=== PATIENT | male | born 1970 | race Two or more races ===

== ENCOUNTER 2019-11-09 18:21 | Inpatient (IN) | payer MEDICAID ==
[~2019-11-09] VITALS: Ht 165.1 cm; Wt 96.0 kg
[2019-11-09] MEDS ORDERED: ATORVASTATIN CA20 MG ORAL (18:40)
[2019-11-09] MEDS ORDERED: ASPIR 8181 MG ORAL (18:40)
[2019-11-09] MEDS ORDERED: TORSEMIDE10 MG PO (18:40)
[2019-11-09] MEDS ORDERED: LOSARTAN POTASS50 MG ORAL (18:40)
[2019-11-09] MEDS ORDERED: POTASSIUM CHLO10 MEQ ORAL (18:40)
[2019-11-09] MEDS ORDERED: HYDRALAZINE HCL50 MG ORAL (18:40)
--- NOTE | 2019-11-09 18:40 | NUR ---
ED Nurse Note: Pt ambulated to ED as he being referred by his primary physician. Per recent records, pt has elevated potassium level of 6.2. Pt is A&Ox4, calm and cooperative, pt denies chest pain. Per appears to be having generalized edema; complains of RT lower abdominal pain radiating on his lower back with 8/10 scale. Pt was placed on bed and gown; hooked to cardiac exercise specialist.
[2019-11-09 18:52] VITALS: BP 169/86
--- NOTE | 2019-11-09 18:59 | NUR ---
ED Nurse Note: ERMD at bedside.
--- NOTE | 2019-11-09 19:02 | NUR ---
ED Nurse Note: Hand-off given to Mike Gonsales RN for continuity of care.
--- NOTE | 2019-11-09 19:03 | Emergency Room Report ---
History of Present Illness General Chief Complaint: Abnormal Labs Source: Patient Present Illness HPI 49-year-old male with a history of chronic kidney disease and CHF on Lasix here with abnormal labs. Patient had routine lab work done yesterday and received a call from his primary care physician today that he had a potassium of 6.2 and to come immediately to the emergency department. Patient says that he has been experiencing diffuse extremity swelling over the past month but says that today it is slightly better than it had been. Denies any headaches, vision changes, fevers, chills, chest pain, palpitation, shortness of breath, back pain, abdominal pain, nausea, vomiting, diarrhea, dysuria. 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 COVID-19 Screening: Negative COVID-19 COVID-19 Testing Source: SALES ACCOUNT COORDINATOR Nursing Documentation-[facility] Past Medical History: No History, Except For Hx Cardiac Problems: Yes - Hyperlidemia Hx Hypertension: Yes Hx Pacemaker: No Hx Asthma: No Hx COPD: No Hx Diabetes: Yes Hx Cancer: No Hx Gastrointestinal Problems: No Hx Dialysis: No History Of Psychiatric Problem: No Hx Neurological Problems: No Hx Cerebrovascular Accident: No Hx Seizures: No Review of Systems All Other Systems: negative except mentioned in HPI Physical Exam Vital Signs Date Time Temp Pulse Resp B/P (MAP) Pulse Ox O2 Delivery O2 Flow Rate FiO2 11/09/19 18:30 98.4 89 14 169/86 (113) 97 Room Air Sp02 EP Interpretation: reviewed, normal General Appearance: no apparent distress, alert, GCS 15, non-toxic Head: normocephalic, atraumatic Eyes: bilateral eye normal inspection, bilateral eye PERRL ENT: hearing grossly normal, normal pharynx, no angioedema, normal voice Neck: full range of motion, supple/symm/no masses Respiratory: chest non-tender, lungs clear, normal breath sounds, speaking full sentences Cardiovascular #1: regular rate, rhythm, no edema Cardiovascular #2: 2+ carotid (R), 2+ carotid (L), 2+ radial (R), 2+ radial (L) , 2+ dorsalis pedis (R), 2+ dorsalis pedis (L) Gastrointestinal: normal bowel sounds, non tender, soft, non-distended, no guarding, no rebound Rectal: deferred Genitourinary: normal inspection, no CVA tenderness Musculoskeletal: back normal, normal range of motion, calf tenderness, gait/ station normal, non-tender, other - 2+ pitting edema of the bilateral lower extremities distal to the knees equally in both extremities. Very mild edema of the bilateral upper extremities Neurologic: alert, motor strength/tone normal, oriented x3, sensory intact, responsive, speech normal Psychiatric: judgement/insight normal, memory normal, mood/affect normal, no suicidal/homicidal ideation Reflexes: 3+ bicep (R), 3+ bicep (L), 3+ tricep (R), 3+ tricep (L), 3+ knee (R) , 3+ knee (L) Lymphatic: no adenopathy Medical Decision Making Diagnostic Impression: Primary Impression: Hyperkalemia Additional Impressions: Anemia FAVIOLA (acute kidney injury) ER Course Laboratory Tests Test 11/09/19 18:55 11/09/19 19:00 Urine Color Yellow Urine Appearance Clear Urine pH 7 (4.5-8.0) Urine Specific [place] 1.010 (1.005-1.035) Urine Protein 4+ (NEGATIVE) H Urine Glucose (UA) 2+ (NEGATIVE) H Urine Ketones Negative (NEGATIVE) Urine Blood 2+ (NEGATIVE) H Urine Nitrite Negative (NEGATIVE) Urine Bilirubin Negative (NEGATIVE) Urine Urobilinogen Normal MG/DL (0.0-1.0) Urine Leukocyte Esterase Negative (NEGATIVE) Urine RBC 10-15 /HPF (0 - 0) H Urine WBC 0-2 /HPF (0 - 0) Urine Squamous Epithelial Cells Occasional /LPF Urine Bacteria Occasional /HPF (NONE) White Blood Count 6.0 K/UL (4.8-10.8) Red Blood Count 3.40 M/UL (4.70-6.10) L Hemoglobin 9.2 G/DL (14.2-18.0) L Hematocrit 30.6 % (42.0-52.0) L Mean Corpuscular Volume 90 FL (80-99) Mean Corpuscular Hemoglobin 27.0 PG (27.0-31.0) Mean Corpuscular Hemoglobin Concent 30.0 G/DL (32.0-36.0) L Red Cell Distribution Width 15.0 % (11.6-14.8) H Platelet Count 245 K/UL (150-450) Mean Platelet Volume 8.6 FL (6.5-10.1) Neutrophils (%) (Auto) 62.1 % (45.0-75.0) Lymphocytes (%) (Auto) 23.4 % (20.0-45.0) Monocytes (%) (Auto) 7.9 % (1.0-10.0) Eosinophils (%) (Auto) 5.3 % (0.0-3.0) H Basophils (%) (Auto) 1.4 % (0.0-2.0) Prothrombin Time 10.2 SEC (9.30-11.50) Prothrombin Time INR 0.9 (0.9-1.1) Sodium Level 142 MMOL/L (136-145) Potassium Level 6.1 MMOL/L (3.5-5.1) *H Chloride Level 111 MMOL/L (98-107) H Carbon Dioxide Level 25 MMOL/L (21-32) Anion Gap 7 mmol/L (5-15) Blood Urea Nitrogen 31 mg/dL (7-18) H Creatinine 1.8 MG/DL (0.55-1.30) H Estimated Glomerular Filtration Rate 40.0 mL/min (>60) Glucose Level 137 MG/DL (74-106) H Calcium Level 8.3 MG/DL (8.5-10.1) L Total Bilirubin 0.3 MG/DL (0.2-1.0) Aspartate Amino Transferase (AST) 29 U/L (15-37) Alanine Aminotransferase (ALT) 36 U/L (12-78) Alkaline Phosphatase 452 U/L (46-116) H Ammonia 46 umol/L (11-32) H Troponin I 0.016 ng/mL (0.000-0.056) Pro-B-Type Natriuretic Peptide 4777 pg/mL (0-125) H Total Protein 6.2 G/DL (6.4-8.2) L Albumin 2.3 G/DL (3.4-5.0) L Globulin 3.9 g/dL Albumin/Globulin Ratio 0.6 (1.0-2.7) L Thyroid Stimulating Hormone (TSH) 4.159 uiU/mL (0.358-3.740) EKG: NSR, no ischemia, intervals WNL. No ectopy Rhythm strip: patient monitored for arrhythmias - no malignant dysrhythmias, runs of PVCs, nor pauses noted Chest x-ray: No infiltrate/effusion. Mediastinum within normal limits Total critical care time: Approximately 30 minutes Due to a high probability of clinically significant, life threatening deterioration, the patient required the highest level of preparedness to intervene emergently and I personally spent this critical care time directly and personally managing the patient. This critical care time included obtaining a history, examining the patient, pulse oximetry, ordering and reviewing studies , ordering treatments, evaluating response to treatment and updating management plan as needed, frequent reassessment and discussion with other providers as well as arranging for ultimate disposition. This critical to care time was performed to assess and manage the high probability of life-threatening deterioration that could result in multiorgan failure. This critical care time is separate from the separately billable procedures and treating other patients. 49-year-old male here with hyperkalemia. Patient's potassium 6.1 in the emergency department but had no EKG changes. He received Lasix, IV normal saline, Kayexalate, insulin, dextrose. Repeat potassium was 5.1. Patient labs also reveal an acute kidney injury. His creatinine was 1.8 and his normal baseline creatinine is 1.1. I spoke with the patient's primary care provider who agrees with admission. Patient admitted to telemetry in stable condition. Last Vital Signs Date Time Temp Pulse Resp B/P (MAP) Pulse Ox O2 Delivery O2 Flow Rate FiO2 11/09/19 18:52 98.4 14 169/86 97 Room Air 11/09/19 18:30 89 Blu Castro M.D. Nov 09, 2019 19:03
[2019-11-09 19:30] VITALS: BP 173/88
--- NOTE | 2019-11-09 19:30 | NUR ---
ED Nurse Note: received patient from nicolas vuong rn. patient resting in bed with no acute distress. aao4; bengali speaking; follows command; presents with purposeful movement. reattached to monitor; vitals stable to baseline. NSR. room air. skin intact. iv access noted; flushed and patent. discussed plan of care with patient; aware of condition and pending admission. belongings list completed with patient. all safety measures met.
[2019-11-09 19:31] LABS: BASOPHILS % (AUTO) 1.4 % (0.0-2.0); EOSINOPHILS % (AUTO) 5.3 % (0.0-3.0); HEMATOCRIT 30.6 % (42.0-52.0); HEMOGLOBIN 9.2 G/DL (14.2-18.0); LYMPHOCYTES % (AUTO) 23.4 % (20.0-45.0); MEAN CORPUSCULAR VOLUME 90 FL (80-99); MONOCYTES % (AUTO) 7.9 % (1.0-10.0); NEUTROPHILS % (AUTO) 62.1 % (45.0-75.0); PLATELET COUNT 245 K/UL (150-450)
[2019-11-09 19:36] LABS: APPEARANCE,URINE CLEAR; BILIRUBIN, URINE NEGATIVE (NEGATIVE); COLOR,URINE YELLOW; GLUCOSE, URINE (UA) 2+ (NEGATIVE); KETONES,URINE NEGATIVE (NEGATIVE); LEUKOCYTE ESTERASE ,URINE NEGATIVE (NEGATIVE); NITRITE,URINE NEGATIVE (NEGATIVE); PH,URINE 7 (4.5-8.0); PROTEIN,URINE 4+ (NEGATIVE); UROBILINOGEN,URINE NORMAL MG/DL (0.0-1.0)
[2019-11-09 19:40] LABS: AMMONIA 46 umol/L (11-32); INR 0.9 (0.9-1.1)
[2019-11-09 19:50] LABS: ALANINE AMINOTRANSFERASE 36 U/L (12-78); ALBUMIN 2.3 G/DL (3.4-5.0); ALBUMIN/GLOBULIN RATIO 0.6 (1.0-2.7); ALKALINE PHOSPHATASE 452 U/L (46-116); ANION GAP 7 mmol/L (5-15); ASPARTATE AMINO TRANSFERASE 29 U/L (15-37); BILIRUBIN,TOTAL 0.3 MG/DL (0.2-1.0); BLOOD UREA NITROGEN 31 mg/dL (7-18); CALCIUM 8.3 MG/DL (8.5-10.1); CARBON DIOXIDE 25 MMOL/L (21-32); CHLORIDE 111 MMOL/L (98-107); CREATININE 1.8 MG/DL (0.55-1.30); SODIUM 142 MMOL/L (136-145)
[2019-11-09 19:52] LABS: POTASSIUM 6.1 MMOL/L (3.5-5.1)
[2019-11-09] MEDS ORDERED: Insulin Human Regular 100units/ml 3ml IV ONE (20:00)
[2019-11-09] MEDS: NS 500 ML IV SCH ×3 (20:17→21:17)
[2019-11-09] MEDS ORDERED: Sodium Polystyrene Sulfonate 15gm Powder ORAL ONE (20:45)
--- NOTE | 2019-11-09 21:00 | NUR ---
ED Nurse Note: Repeat potassium drawn; sent down to lab.
[2019-11-09 21:45] VITALS: BP 153/83
--- NOTE | 2019-11-09 22:15 | NUR ---
TRANSFER TO FLOOR: Patient transferred to tele 212-1 as ordered, per kendrick villaseñor. Report given to blessing hoff. patient stable for transport. transferred to unit via gurney with ashley and rn. belongings and admission packet sent with patient.
[2019-11-09 23:00] VITALS: BP 154/77
--- NOTE | 2019-11-09 23:00 | NUR ---
NURSE NOTES: Pt arrived via gurney from ED. Got report from Shital RONDON. Initial assessment done. Pt is here for hyperkalemia. Pt is A+Ox4 Turkish speaking can understand basic Argentine. Pt is ambulatory but weak. Pt is continent uses urinal. Denies any pain. Denies any n/v or SOB. telemetry monitor placed on pt running Sinus Rhythm. Pt on room air sating 94% no SOB. VSS T:97.4 HR:80 R:16 BP:154/77 O2:94% on room air. No skin issues noted. Pt has R AC 20g Slocked. Pt resting in bed comfortably. Bed in low and locked position, call light within reach, bedside table within reach. Continue to monitor. Got orders from Dr. Moran. Orders placed.
[2019-11-09 23:04] LABS: ANION GAP 9 mmol/L (5-15); BLOOD UREA NITROGEN 30 mg/dL (7-18); CALCIUM 8.3 MG/DL (8.5-10.1); CARBON DIOXIDE 24 MMOL/L (21-32); CHLORIDE 113 MMOL/L (98-107); CREATININE 1.7 MG/DL (0.55-1.30); POTASSIUM 5.2 MMOL/L (3.5-5.1); SODIUM 145 MMOL/L (136-145)
[2019-11-10 04:00] VITALS: BP 150/75
--- NOTE | 2019-11-10 04:20 | NUR ---
NURSE NOTES: Pt woke up agitated and trying to get out of bed and pulling iv line. Pt complaining of difficulty urinating did bladder scan >400mL. Called Dr. Moran for orders. Dr. Moran ordered bilateral soft wrist restraints and in and out catheter. Applied bilateral soft wrist restraints. Completed in and out catheter output: 1850mL. Pt in stable condition. Continue to monitor. Addendum: 11/10/19 at 0524 by Deepak Lux RN Vital signs post in and out catheter: T:97.7 HR:92 R:14 BP:150/75 O2:94% on room air No pain
[2019-11-10] MEDS: HydrALAZINE 50mg tab ORAL SCH ×3 (05:47→21:48)
--- NOTE | 2019-11-10 07:15 | NUR ---
NURSE HAND-OFF REPORT: Important Events on Shift:[] Patient Status: [Stable] Diet: [Cardiac] Pending Orders: [] Pending Results/Labs:[] Pending MD notification:[] Latest Vital Signs: Temperature 97.7 , Pulse 92 , B/P 157 /80 , Respiratory Rate 14 , O2 SAT 94 , Room Air, O2 Flow Rate . Vital Sign Comment: [] EKG Rhythm: Sinus Rhythm Rhythm change?: N MD Notified?: - MD Response: Latest Lang Fall Score: 30 Fall Risk: Medium Risk Safety Measures: Call light , Bed Alarm , Side Rails Side Rails x2, Bed position . Fall Precautions: Report given to [Alicia RN].
--- NOTE | 2019-11-10 07:20 | NUR ---
NURSE NOTES: Received report from Deepak/RN, Observed patient lying semi-fowlers, resting comfortably. On room air, No acute distress/SOB noted, Breathing unlabored and even. IV on right AC, patent and clean. Bilateral soft restraint on wrist for safety. Bed in low position and locked. Call light and bed side table within reach. Will continue plan of care.
[2019-11-10 07:34] LABS: ANION GAP 9 mmol/L (5-15); BLOOD UREA NITROGEN 33 mg/dL (7-18); CALCIUM 8.7 MG/DL (8.5-10.1); CARBON DIOXIDE 21 MMOL/L (21-32); CHLORIDE 113 MMOL/L (98-107); CREATININE 1.7 MG/DL (0.55-1.30); SODIUM 143 MMOL/L (136-145)
--- NOTE | 2019-11-10 07:51 | NUR ---
NURSE NOTES: Released bilateral restraint to see how patient is doing with out it, Patient obey command eating breakfast in bed, feeding self, no agitation noted. will continue to monitor closely.
[2019-11-10 08:00] VITALS: BP 114/82
[2019-11-10 08:26] LABS: POTASSIUM 6.2 MMOL/L (3.5-5.1)
[2019-11-10] MEDS ORDERED: Aspirin Baby 81mg NG SCH (09:00)
[2019-11-10] MEDS ORDERED: Sodium Polystyrene Sulfonate 15gm Powder ORAL SCH (10:00)
[2019-11-10] MEDS: Torsemide 10mg tab ORAL SCH ×2 (10:01→18:18)
[2019-11-10] MEDS: Aspirin Baby 81mg ORAL SCH (10:01)
[2019-11-10] MEDS ORDERED: Insulin Human Regular 100units/ml 3ml IV SCH (10:30)
[2019-11-10] MEDS ORDERED: Calcium Gluconate 1gm/50ml 50 ML IVPB SCH (10:30)
[2019-11-10 12:00] VITALS: BP 154/73
[2019-11-10 12:40] LABS: ANION GAP -3 mmol/L (5-15); BLOOD UREA NITROGEN 34 mg/dL (7-18); CALCIUM 8.4 MG/DL (8.5-10.1); CARBON DIOXIDE 25 MMOL/L (21-32); CHLORIDE 110 MMOL/L (98-107); CREATININE 1.7 MG/DL (0.55-1.30); POTASSIUM 4.8 MMOL/L (3.5-5.1); SODIUM 132 MMOL/L (136-145)
--- NOTE | 2019-11-10 13:10 | Consultation ---
History of Present Illness General Chief Complaint: Abnormal Labs Reason for Consultation: FAVIOLA, hyperkalemia Present Illness HPI 49-year-old male with a history of chronic kidney disease and CHF on Lasix here with abnormal labs. Patient had routine lab work done 2 days ago and received a call from his primary care physician yesterday that he had a potassium of 6.2 and to come immediately to the emergency department. Patient says that he has been experiencing diffuse extremity swelling over the past month but says that today it is slightly better than it had been. Denies any headaches, vision changes, fevers, chills, chest pain, palpitation, shortness of breath, back pain , abdominal pain, nausea, vomiting, diarrhea, His K on presentation 6.1 given NS bolus, lasix, kayexalate and insulin and D50 repeat K 5.3 K this morning elevated again - treated medically Renal US: Findings: Right kidney measures 12.4 cm in length. Left kidney measures 12 point cm in length. Both kidneys demonstrate normal echogenicity. No hydronephrosis. No focal abnormality. Normal inferior vena cava. Bladder is normal. Calculated prostate volume 26 mL Impression: negative. Allergies: Coded Allergies: No Known Allergies (Unverified , 11/09/19) Medication History Scheduled Aspirin* (Aspir 81*), 81 MG ORAL DAILY, (Reported) Atorvastatin Calcium* (Atorvastatin Calcium*), 20 MG ORAL BEDTIME, (Reported) Hydralazine Hcl* (Hydralazine Hcl*), 50 MG ORAL EVERY 8 HOURS, (Reported) Losartan Potassium* (Losartan Potassium*), 50 MG ORAL DAILY, (Reported) Potassium Chloride* (K-Dur*), 10 MEQ ORAL DAILY, (Reported) Torsemide* (Demadex*), 10 MG PO BID, (Reported) Patient History Healthcare decision maker N Resuscitation status Advanced Directive on File Review of Systems All Other Systems: negative except mentioned in HPI Physical Exam General Appearance: no apparent distress, alert Lines, tubes and drains: peripheral HEENT: normocephalic, atraumatic Neck: non-tender, normal alignment Respiratory/Chest: chest wall non-tender, lungs clear Cardiovascular/Chest: normal peripheral pulses, normal rate, no JVD Neurologic: alert, oriented x 3 Last 24 Hour Vital Signs Date Time Temp Pulse Resp B/P (MAP) Pulse Ox O2 Delivery O2 Flow Rate FiO2 11/10/19 08:00 97.9 101 20 114/82 (93) 98 11/10/19 08:00 102 11/10/19 05:47 157/80 11/10/19 04:00 97.7 92 14 150/75 (100) 94 11/10/19 04:00 80 11/10/19 01:50 Room Air 11/09/19 23:00 97.4 80 16 154/77 (102) 94 11/09/19 22:15 98.4 77 16 157/91 98 Room Air 11/09/19 21:45 98.4 79 12 153/83 99 Room Air 11/09/19 19:30 98.4 84 14 173/88 97 Room Air 11/09/19 18:52 98.4 14 169/86 97 Room Air 11/09/19 18:30 98.4 89 14 169/86 (113) 97 Room Air Intake and Output 11/09/19 11/10/19 19:00 07:00 Output Total 1850 ml Balance -1850 ml Output Urine Total 1850 ml # Bowel Movements 1 Laboratory Tests Test 11/09/19 18:55 11/09/19 19:00 11/09/19 21:00 11/10/19 06:10 Urine Color Yellow Urine Appearance Clear Urine pH 7 (4.5-8.0) Urine Specific [place] 1.010 (1.005-1.035) Urine Protein 4+ (NEGATIVE) H Urine Glucose (UA) 2+ (NEGATIVE) H Urine Ketones Negative (NEGATIVE) Urine Blood 2+ (NEGATIVE) H Urine Nitrite Negative (NEGATIVE) Urine Bilirubin Negative (NEGATIVE) Urine Urobilinogen Normal MG/DL (0.0-1.0) Urine Leukocyte Esterase Negative (NEGATIVE) Urine RBC 10-15 /HPF (0 - 0) H Urine WBC 0-2 /HPF (0 - 0) Urine Squamous Epithelial Cells Occasional /LPF Urine Bacteria Occasional /HPF (NONE) White Blood Count 6.0 K/UL (4.8-10.8) Red Blood Count 3.40 M/UL (4.70-6.10) L Hemoglobin 9.2 G/DL (14.2-18.0) L Hematocrit 30.6 % (42.0-52.0) L Mean Corpuscular Volume 90 FL (80-99) Mean Corpuscular Hemoglobin 27.0 PG (27.0-31.0) Mean Corpuscular Hemoglobin Concent 30.0 G/DL (32.0-36.0) L Red Cell Distribution Width 15.0 % (11.6-14.8) H Platelet Count 245 K/UL (150-450) Mean Platelet Volume 8.6 FL (6.5-10.1) Neutrophils (%) (Auto) 62.1 % (45.0-75.0) Lymphocytes (%) (Auto) 23.4 % (20.0-45.0) Monocytes (%) (Auto) 7.9 % (1.0-10.0) Eosinophils (%) (Auto) 5.3 % (0.0-3.0) H Basophils (%) (Auto) 1.4 % (0.0-2.0) Prothrombin Time 10.2 SEC (9.30-11.50) Prothromb Time International Ratio 0.9 (0.9-1.1) Sodium Level 142 MMOL/L (136-145) 145 MMOL/L (136-145) 143 MMOL/L (136-145) Potassium Level 6.1 MMOL/L (3.5-5.1) *H 5.2 MMOL/L (3.5-5.1) H 6.2 MMOL/L (3.5-5.1) *H Chloride Level 111 MMOL/L (98-107) H 113 MMOL/L (98-107) H 113 MMOL/L (98-107) H Carbon Dioxide Level 25 MMOL/L (21-32) 24 MMOL/L (21-32) 21 MMOL/L (21-32) Anion Gap 7 mmol/L (5-15) 9 mmol/L (5-15) 9 mmol/L (5-15) Blood Urea Nitrogen 31 mg/dL (7-18) H 30 mg/dL (7-18) H 33 mg/dL (7-18) H Creatinine 1.8 MG/DL (0.55-1.30) H 1.7 MG/DL (0.55-1.30) H 1.7 MG/DL (0.55-1.30) H Estimat Glomerular Filtration Rate 40.0 mL/min (>60) 42.7 mL/min (>60) 42.7 mL/min (>60) Glucose Level 137 MG/DL (74-106) H 52 MG/DL (74-106) L 75 MG/DL (74-106) Calcium Level 8.3 MG/DL (8.5-10.1) L 8.3 MG/DL (8.5-10.1) L 8.7 MG/DL (8.5-10.1) Total Bilirubin 0.3 MG/DL (0.2-1.0) Aspartate Amino Transf (AST/SGOT) 29 U/L (15-37) Alanine Aminotransferase (ALT/SGPT) 36 U/L (12-78) Alkaline Phosphatase 452 U/L (46-116) H Ammonia 46 umol/L (11-32) H Troponin I 0.016 ng/mL (0.000-0.056) Pro-B-Type Natriuretic Peptide 4777 pg/mL (0-125) H Total Protein 6.2 G/DL (6.4-8.2) L Albumin 2.3 G/DL (3.4-5.0) L Globulin 3.9 g/dL Albumin/Globulin Ratio 0.6 (1.0-2.7) L Thyroid Stimulating Hormone (TSH) 4.159 uiU/mL (0.358-3.740) Phosphorus Level 5.8 MG/DL (2.5-4.9) H Magnesium Level 2.0 MG/DL (1.8-2.4) Test 11/10/19 10:04 11/10/19 12:00 POC Whole Blood Glucose Pending Sodium Level 132 MMOL/L (136-145) #L Potassium Level 4.8 MMOL/L (3.5-5.1) Chloride Level 110 MMOL/L (98-107) H Carbon Dioxide Level 25 MMOL/L (21-32) Anion Gap -3 mmol/L (5-15) L Blood Urea Nitrogen 34 mg/dL (7-18) H Creatinine 1.7 MG/DL (0.55-1.30) H Estimat Glomerular Filtration Rate 42.7 mL/min (>60) Glucose Level 178 MG/DL (74-106) #H Calcium Level 8.4 MG/DL (8.5-10.1) L Height (Feet): 5 Height (Inches): 5.00 Weight (Pounds): 215 Medications Current Medications Medications (Trade) Dose Ordered Sig/Elidia Route PRN Reason Start Time Stop Time Status Last Admin Dose Admin Aspirin (ASA) 81 mg DAILY ORAL 11/10/19 09:00 12/25/19 08:59 11/10/19 10:01 Atorvastatin Calcium (Lipitor) 20 mg BEDTIME ORAL 11/10/19 21:00 02/08/20 20:59 Hydralazine HCl (Apresoline) 50 mg Q8HR ORAL 11/10/19 06:00 02/08/20 05:59 11/10/19 05:47 Torsemide (Demadex) 10 mg BID ORAL 11/10/19 09:00 12/10/19 08:59 11/10/19 10:01 Assessment/Plan Diagnosis [address] I: #FAVIOLA on CKD #hyperkalemia #htn #DM #CHF #Anemia - s/p insulin, D50, insulin, D50, lasix IV - check K following treatment - torsemide 10mg BID - hydralazine 50mg TID - check iron panel - PTH, vit D - hold ACEi/arb - renal US neg - check 2d echo - avoid nephrotxins - daily weights - strict I&Os time spent 70 min - greater than 50% on care khadijah and Negar Diez M.D. Nov 10, 2019 13:10
--- NOTE | 2019-11-10 14:19 | NUR ---
CASE MANAGEMENT:REVIEW PRESENTED TO ER CC: REFERRED BY PCP D/T RECENT LABS. BACK PAIN AND GENERALIZED SWELLING SI: HYPERKALEMIA 98.5 89 14 169/86 97% ON RA K+6.1 BUN+33 CR+1.7 CA-8.3 IS: IV LASIX IV INSULIN IV D50W 500CC NS BOLUS KAYEXALATE chest xray : TO TELEMETRY UNIT DCP: FROM HOME
--- NOTE | 2019-11-10 14:30 | NUR ---
INSURANCE CLINICALS AND REVIEW FAXED TO [facility]AN[facility] GARC[facility]IS[facility] T: [phone] F: [phone] DR SMITH IS THE HOSPITALIST Addendum: 11/11/19 at 1204 by CAROLE PETERS CM F: [phone]
--- NOTE | 2019-11-10 15:30 | History and Physical Report ---
DATE OF ADMISSION: 11/09/2019 HISTORY OF PRESENT ILLNESS: This is a 49-year-old male with a history of CKD and CHF. He presented to the hospital with abnormal labs. He also reported that he had swelling of his feet. The patient was noted to be hyperkalemic and this was corrected in the emergency room. At this time, he states he is feeling better. This morning, he was markedly agitated. PAST MEDICAL HISTORY: Notable for CKD, hypertension, hyperlipidemia. PREVIOUS SURGICAL HISTORY: None. REVIEW OF SYSTEMS: Denies any headaches, hematemesis, melena, hematochezia, night sweats, or weight loss. PHYSICAL EXAMINATION: GENERAL: Reveals a 49-year-old male. VITAL SIGNS: Blood pressure is 150/80, heart rate 92, respirations are 18, O2 saturation 94% on room air. HEENT: Unremarkable. CHEST: Decreased breath sounds bilaterally. ABDOMEN: Soft, nontender. CARDIAC: Heart sounds are normal. EXTREMITIES: There is 2+ bilateral edema. LABORATORY DATA: Lab testing shows hemoglobin 9.2, otherwise normal CBC. Potassium again this morning is noted to be 6.2, yesterday was down to 5.2, creatinine 1.7, phosphorus 5.8, sodium 143. Coags are negative. Urinalysis negative. His EKG showed mildly peaked T-waves. X-ray chest is negative. IMPRESSION: 1. Hyperkalemia. 2. Renal insufficiency. 3. CKD. 4. CHF. DISCUSSION: Admit to the hospital. Continue medications. Nephrology consult requested. We will also request Cardiology consultation. Avoid all nephrotoxins. I have discontinued losartan. We will follow carefully. Blu Moran M.D. DR: KAILA JOB#: [id number] CC:
[2019-11-10 16:00] VITALS: BP 165/82
--- NOTE | 2019-11-10 16:11 | Diagnostic Imaging Report ---
Indication:, Abnormal liver function tests, chronic renal failure, hyperkalemia Technique: Grayscale and duplex images of the kidneys, retroperitoneum, and bladder were obtained. Comparison: none Findings: Right kidney measures 12.4 cm in length. Left kidney measures 12 point cm in length. Both kidneys demonstrate normal echogenicity. No hydronephrosis. No focal abnormality. Normal inferior vena cava. Bladder is normal. Calculated prostate volume 26 mL Impression: negative.
--- NOTE | 2019-11-10 17:36 | Diagnostic Imaging Report ---
Indication: Shortness of breath Technique: One view of the chest Comparison: none Findings: There is some suprahilar atelectasis. There is some central bronchial wall thickening. Lungs and pleural spaces are otherwise clear. The heart is borderline enlarged. Impression: Borderline cardiomegaly Central bronchial wall thickening, may be on the basis of bronchitis versus very mild pulmonary edema Left suprahilar atelectasis
--- NOTE | 2019-11-10 19:15 | NUR ---
NURSE HAND-OFF REPORT: Important Events on Shift: Patient awake and alert Patient Status: stable Diet: Cardiac Pending Orders: NA Pending Results/Labs:NA Pending MD notification:NA Latest Vital Signs: Temperature 97.7 , Pulse 86 , B/P 165 /82 , Respiratory Rate 20 , O2 SAT 98 , Room Air, O2 Flow Rate . Vital Sign Comment: Stable EKG Rhythm: Sinus Rhythm Rhythm change?: N MD Notified?: - MD Response: Latest Lang Fall Score: 30 Fall Risk: Medium Risk Safety Measures: Call light Within Reach, Bed Alarm Zone 1, Side Rails Side Rails x2, Bed position Low and Locked. Fall Precautions: Yellow Socks Yellow Gown Patient Fall Education Report given to Deepak/NELA.
--- NOTE | 2019-11-10 19:16 | NUR ---
NURSE NOTES: Received pt from Alicia RN. Observed patient in semi fowlers position resting comfortably in bed. Patient is on Room air and in no respiratory distress. Patient is mobile and toilets independently. IV is on Right AC Saline Lock. Call light and bedside table are within reach. Will continue plan of care.
[2019-11-10 20:28] VITALS: BP 156/83
[2019-11-10] MEDS ORDERED: Atorvastatin 20mg tab ORAL SCH (21:00)
[2019-11-11] VITALS: BP 147/69
[2019-11-11 04:00] VITALS: BP 152/77
[2019-11-11] MEDS: HydrALAZINE 50mg tab ORAL SCH ×2 (05:40→13:16)
[2019-11-11 06:10] VITALS: BP 157/78
--- NOTE | 2019-11-11 06:44 | Consultation ---
DATE OF CONSULTATION: 11/10/2019 CARDIOLOGY CONSULT REASON FOR CONSULTATION: Hyperkalemia, history of congestive heart failure, pulmonary hypertension. HISTORY: This 49-year-old male presented to the emergency room with abnormal lab studies done as an outpatient 2 days ago. These labs were notable for a potassium of 6.2 the patient also notes that he has had swelling of his extremities over the past month as well. The patient has not had any chest pain or shortness of breath. In the emergency room, he was given Kayexalate, insulin, and saline as well as furosemide for a potassium of 6.1, which corrected to 5.3. Since admission, workup has also included a renal ultrasound revealing normal bilateral kidneys and a 2D echocardiogram revealing normal ejection fraction, normal valve structures, moderate tricuspid regurgitation, and severe pulmonary hypertension with PA systolic pressure estimated at almost 60 mmHg. There was no sign of right ventricular dysfunction. PAST MEDICAL HISTORY: Hyperlipidemia and hypertension. ALLERGIES: No allergies. MEDICATIONS: Reviewed. PHYSICAL EXAMINATION: VITAL SIGNS: Blood pressure 165/82, pulse 88, respirations 20, afebrile, oxygen saturation 98% on room air. LUNGS: Clear. CARDIAC: Regular. Normal S1, S2 with a 1/6 systolic murmur at lower left sternal border. No CVA tenderness. EXTREMITIES: 1+ edema. IMPRESSIONS: 1. Medication-associated hyperkalemia and acute on chronic renal failure. 2. Severe pulmonary hypertension. No clinical signs of acute congestive heart failure. 3. Hypertensive heart disease. PLAN: 1. Hold losartan. 2. Hold diuretic. 3. Monitor potassium. 4. Check V/Q scan and venous duplex study of lower extremities. 5. Further pulmonary workup to be considered. Samuel Redd M.D. DR: KRISTINA JOB#: [id number] CC:
--- NOTE | 2019-11-11 07:10 | NUR ---
NURSE HAND-OFF REPORT: Important Events on Shift:N/A Patient Status: Full Code/ Stable Diet: Cardiac Regular Texture Pending Orders: Pending Results/Labs:Iron Panel, Ferritin, Vitamin D, PTH, Magnesium, Phosphorus Pending MD notification: Latest Vital Signs: Temperature 99.5 , Pulse 91 , B/P 157 /78 , Respiratory Rate 14 , O2 SAT 97 , Room Air, O2 Flow Rate . Vital Sign Comment: VSS EKG Rhythm: Sinus Rhythm Rhythm change?: N MD Notified?: - MD Response: Latest Lang Fall Score: 20 Fall Risk: Low Risk Safety Measures: Call light Within Reach, Bed Alarm Zone 1, Side Rails Side Rails x2, Bed position Low and Locked. Fall Precautions: Yellow Socks Yellow Gown Patient Fall Education Report given to Karine RONDON.
[2019-11-11 07:33] LABS: ANION GAP 9 mmol/L (5-15); BASOPHILS % (AUTO) 1.3 % (0.0-2.0); BLOOD UREA NITROGEN 32 mg/dL (7-18); CARBON DIOXIDE 24 MMOL/L (21-32); CHLORIDE 107 MMOL/L (98-107); CREATININE 1.6 MG/DL (0.55-1.30); HEMATOCRIT 29.1 % (42.0-52.0); HEMOGLOBIN 8.7 G/DL (14.2-18.0); LYMPHOCYTES % (AUTO) 24.5 % (20.0-45.0); MEAN CORPUSCULAR VOLUME 89 FL (80-99); MONOCYTES % (AUTO) 5.9 % (1.0-10.0); NEUTROPHILS % (AUTO) 63.3 % (45.0-75.0); PLATELET COUNT 221 K/UL (150-450); POTASSIUM 4.4 MMOL/L (3.5-5.1); RED BLOOD COUNT 3.27 M/UL (4.70-6.10); RED CELL DISTRIBUTION WIDTH 14.9 % (11.6-14.8); SODIUM 140 MMOL/L (136-145); WHITE BLOOD COUNT 5.9 K/UL (4.8-10.8)
[2019-11-11 07:43] LABS: % IRON SATURATION 46 % (15-50); IRON 81 ug/dL (50-175); TOTAL IRON BINDING CAPACITY 175 ug/dL (250-450)
--- NOTE | 2019-11-11 07:46 | NUR ---
NURSE NOTES: Received report from NELA Kunz. Pt in bed awake and resting. No complaints of pain or distress. Bed low and locked, call light within reach.
--- NOTE | 2019-11-11 07:46 | NUR ---
CASE MANAGEMENT: REVIEW SI: SEVERE PULMONARY HYPERTENSION . ACUTE ON CHRONIC RENAL FAILURE . T 99.0 HR 89 RR 14 BP 165/81 SAT 97% ROOM AIR BUN 32 CR 1.6 GLUCOSE 205 CALCIUM 8.0 IS: DEMADEX 10MG PO BID ASA 81MG PO QD HYDRALAZINE 50MG PO Q8HR VENOUS DUPLEX BLE PENDING VQ SCAN w/LUNG PERFUSION PENDING TELEMETRY UNIT STATUS DCP: PATIENT IS FROM HOME
--- NOTE | 2019-11-11 07:54 | NUR ---
INSURANCE CLINICALS AND REVIEW FAXED TO [facility] T: [phone] F: [phone] DR SMITH [facility] Addendum: 11/11/19 at 1204 by CAROLE PETERS CM [phone] Addendum: 11/11/19 at 1205 by CAROLE PETERS CM F: [phone]
[2019-11-11 08:00] VITALS: BP 176/86
[2019-11-11 08:04] LABS: PHOSPHORUS 4.4 MG/DL (2.5-4.9)
--- NOTE | 2019-11-11 09:06 | Diagnostic Imaging Report ---
Indication:Leg pain and swelling Technique: Grayscale and duplex Doppler imaging of the veins in both lower extremities performed in real time utilizing compression and augmentation. Comparison: None Findings: Duplex Doppler interrogation of the veins in both lower extremity is performed from the common femoral vein to the popliteal vein. Normal venous compressibility demonstrated throughout. No thrombus identified. Waveform analysis shows good respiratory phasicity and augmentation. There is moderate subcutaneous edema in the bilateral calf soft tissue IMPRESSION: No evidence of deep venous thrombosis involving the lower extremities.
[2019-11-11] MEDS: Aspirin Baby 81mg ORAL SCH (10:53)
[2019-11-11] MEDS: Torsemide 10mg tab ORAL SCH (10:53)
[2019-11-11 12:00] VITALS: BP 186/88
--- NOTE | 2019-11-11 13:10 | Pulmonology Progress Note ---
Subjective Interval Events: None new. Constitutional: Reports: no symptoms HEENT: Repors: no symptoms Respiratory: Reports: no symptoms Cardiovascular: Reports: no symptoms Gastrointestinal/Abdominal: Reports: no symptoms Genitourinary: Reports: no symptoms Allergies: Coded Allergies: No Known Allergies (Unverified , 11/09/19) Objective Last 24 Hour Vital Signs Date Time Temp Pulse Resp B/P (MAP) Pulse Ox O2 Delivery O2 Flow Rate FiO2 11/11/19 12:00 97.9 92 20 186/88 (120) 98 11/11/19 09:00 Room Air 11/11/19 08:00 97.9 91 20 176/86 (116) 98 11/11/19 08:00 94 11/11/19 06:10 157/78 (104) 11/11/19 05:40 175/85 11/11/19 04:00 91 11/11/19 04:00 99.5 89 14 152/77 (102) 97 11/11/19 00:00 89 11/11/19 00:00 98.9 91 16 147/69 (95) 99 11/10/19 21:48 165/81 11/10/19 21:00 Room Air 11/10/19 20:28 98.8 90 18 156/83 (107) 95 11/10/19 20:00 92 11/10/19 16:00 86 11/10/19 16:00 97.7 88 20 165/82 (109) 98 11/10/19 13:25 154/73 Intake and Output 11/10/19 11/11/19 19:00 07:00 Intake Total 500 ml 240 ml Balance 500 ml 240 ml Intake Oral 500 ml 240 ml # Voids 4 2 # Bowel Movements 1 2 General Appearance: no acute distress HEENT: normocephalic Respiratory: chest wall non-tender Cardiovascular: normal peripheral pulses Abdomen: normal bowel sounds Laboratory Tests 11/11/19 06:03: White Blood Count 5.9, Red Blood Count 3.27L, Hemoglobin 8.7L, Hematocrit 29.1L , Mean Corpuscular Volume 89, Mean Corpuscular Hemoglobin 26.7L, Mean Corpuscular Hemoglobin Concent 29.9L, Red Cell Distribution Width 14.9H, Platelet Count 221, Mean Platelet Volume 8.4, Neutrophils (%) (Auto) 63.3, Lymphocytes (%) (Auto) 24.5, Monocytes (%) (Auto) 5.9, Eosinophils (%) (Auto) 5.0H, Basophils (%) (Auto) 1.3, Sodium Level 140, Potassium Level 4.4, Chloride Level 107, Carbon Dioxide Level 24, Anion Gap 9, Blood Urea Nitrogen 32H, Creatinine 1.6H, Estimat Glomerular Filtration Rate 45.8, Glucose Level 205H, Calcium Level 8.0L, Calcium (Send out) [Pending], Phosphorus Level 4.4, Magnesium Level 1.7L, Iron Level 81, Total Iron Binding Capacity 175L, Percent Iron Saturation 46, Unsaturated Iron Binding 94L, Ferritin 95, Vitamin D 25- Hydroxy [Pending], 25-Hydroxy Vitamin D2 [Pending], 25-Hydroxy Vitamin D3 [ Pending], Parathyroid Hormone (Intact) [Pending] Current Medications Medications (Trade) Dose Ordered Sig/Elidia Route PRN Reason Start Time Stop Time Status Last Admin Dose Admin Aspirin (ASA) 81 mg DAILY ORAL 11/10/19 09:00 12/25/19 08:59 11/11/19 10:53 Atorvastatin Calcium (Lipitor) 20 mg BEDTIME ORAL 11/10/19 21:00 02/08/20 20:59 11/10/19 20:52 Hydralazine HCl (Apresoline) 50 mg Q8HR ORAL 11/10/19 06:00 02/08/20 05:59 11/11/19 05:40 Torsemide (Demadex) 10 mg BID ORAL 11/10/19 09:00 12/10/19 08:59 11/11/19 10:53 Assessment/Plan Assessment/Plan IMPRESSION: 1. Hyperkalemia. 2. Renal insufficiency. 3. CKD. 4. CHF. DISCUSSION: Continue medications. Nephrology consult noted. also noted Cardiology consultation. Avoid all nephrotoxins. I have discontinued losartan. I will follow carefully. await results of duplex and VQ scan Mery Garcia Omar Syed MD Nov 11, 2019 13:10
[2019-11-11 13:16] VITALS: BP 186/88
--- NOTE | 2019-11-11 14:03 | Nephrology Progress Note ---
Assessment/Plan Plan #FAVIOLA on CKD #hyperkalemia #htn #DM #CHF #Anemia - s/p insulin, D50, insulin, D50, lasix IV - check K following treatment - torsemide 10mg BID - hydralazine 50mg TID - check iron panel - PTH, vit D - hold ACEi/arb - renal US neg - check 2d echo - avoid nephrotxins - daily weights - strict I&Os time spent 70 min - greater than 50% on care coordinaton and couseling Subjective ROS Limited/Unobtainable: No Constitutional: Reports: weakness HEENT: Denies: no symptoms, eye pain, blurred vision, tearing, double vision, ear pain, ear discharge, nose pain, nose congestion, throat pain, throat swelling, mouth pain, mouth swelling, other Genitourinary: Denies: no symptoms, burning, discharge, frequency, flank pain, hematuria, incontinence, pain, urgency, other Neurologic/Psychiatric: Denies: no symptoms, anxiety, depressed, emotional problems, headache, numbness, paresthesia, pre-existing deficit, seizure, tingling, tremors, weakness, other Subjective K normalized Cr stable Objective Objective Last 24 Hour Vital Signs Date Time Temp Pulse Resp B/P (MAP) Pulse Ox O2 Delivery O2 Flow Rate FiO2 11/11/19 13:16 186/88 11/11/19 12:00 97.9 92 20 186/88 (120) 98 11/11/19 12:00 93 11/11/19 09:00 Room Air 11/11/19 08:00 97.9 91 20 176/86 (116) 98 11/11/19 08:00 94 11/11/19 06:10 157/78 (104) 11/11/19 05:40 175/85 11/11/19 04:00 91 11/11/19 04:00 99.5 89 14 152/77 (102) 97 11/11/19 00:00 89 11/11/19 00:00 98.9 91 16 147/69 (95) 99 11/10/19 21:48 165/81 11/10/19 21:00 Room Air 11/10/19 20:28 98.8 90 18 156/83 (107) 95 11/10/19 20:00 92 11/10/19 16:00 86 11/10/19 16:00 97.7 88 20 165/82 (109) 98 Intake and Output 11/10/19 11/11/19 19:00 07:00 Intake Total 500 ml 240 ml Balance 500 ml 240 ml Intake Oral 500 ml 240 ml # Voids 4 2 # Bowel Movements 1 2 Laboratory Tests 11/11/19 06:03: White Blood Count 5.9, Red Blood Count 3.27L, Hemoglobin 8.7L, Hematocrit 29.1L , Mean Corpuscular Volume 89, Mean Corpuscular Hemoglobin 26.7L, Mean Corpuscular Hemoglobin Concent 29.9L, Red Cell Distribution Width 14.9H, Platelet Count 221, Mean Platelet Volume 8.4, Neutrophils (%) (Auto) 63.3, Lymphocytes (%) (Auto) 24.5, Monocytes (%) (Auto) 5.9, Eosinophils (%) (Auto) 5.0H, Basophils (%) (Auto) 1.3, Sodium Level 140, Potassium Level 4.4, Chloride Level 107, Carbon Dioxide Level 24, Anion Gap 9, Blood Urea Nitrogen 32H, Creatinine 1.6H, Estimat Glomerular Filtration Rate 45.8, Glucose Level 205H, Calcium Level 8.0L, Calcium (Send out) [Pending], Phosphorus Level 4.4, Magnesium Level 1.7L, Iron Level 81, Total Iron Binding Capacity 175L, Percent Iron Saturation 46, Unsaturated Iron Binding 94L, Ferritin 95, Vitamin D 25- Hydroxy [Pending], 25-Hydroxy Vitamin D2 [Pending], 25-Hydroxy Vitamin D3 [ Pending], Parathyroid Hormone (Intact) [Pending] Height (Feet): 5 Height (Inches): 5.00 Weight (Pounds): 211 Objective General Appearance: no apparent distress, alert Lines, tubes and drains: peripheral HEENT: normocephalic, atraumatic Neck: non-tender, normal alignment Respiratory/Chest: chest wall non-tender, lungs clear Cardiovascular/Chest: normal peripheral pulses, normal rate, no JVD Neurologic: alert, oriented x 3 Negar Connors M.D. Nov 11, 2019 14:03
--- NOTE | 2019-11-11 14:29 | Diagnostic Imaging Report ---
EXAM: NUCLEAR MEDICINE VENTILATION/PERFUSION SCAN. CLINICAL HISTORY: Chest pain. Pulmonary hypertension. COMPARISON: None TECHNIQUE: Ventilation/perfusion studies performed. 42 mCi of technetium 99 DTPA is used for the ventilation portion. 5.5 mCi technetium 99 MAA was used for the perfusion portion. Planar images obtained in multiple projections. FINDINGS: There is homogeneous uptake identified in both ventilation and perfusion images. There is no perfusion defect or mismatch identified. Cardiac silhouette is within normal limits. There is no effusion. IMPRESSION: BY MODIFIED PIOPED CRITERIA, STUDY IS OF LOW PROBABILITY FOR PULMONARY EMBOLISM.
--- NOTE | 2019-11-11 15:39 | NUR ---
NURSE NOTES: Pt discharged home. Picked up by private vehicle. Pt ambulatory and gong home with no devices. Pt signed belongings list and agrees that he has all belongings. Tele monitor removed, IV removed, wrist band removed.
--- NOTE | 2019-11-12 01:00 | Cardiology Progress Note ---
Subjective DATE OF SERVICE: Nov 11, 2019 No CP or SOB. Potassium level has normalized. Venous duplex negative for DVT V/Q scan low probability for PE. 2D echo with severe pulmonary hypertension and normal ejection fxn Objective Last 24 Hour Vital Signs Date Time Temp Pulse Resp B/P (MAP) Pulse Ox O2 Delivery O2 Flow Rate FiO2 11/11/19 13:16 186/88 11/11/19 12:00 97.9 92 20 186/88 (120) 98 11/11/19 12:00 93 11/11/19 09:00 Room Air 11/11/19 08:00 97.9 91 20 176/86 (116) 98 11/11/19 08:00 94 11/11/19 06:10 157/78 (104) 11/11/19 05:40 175/85 11/11/19 04:00 91 11/11/19 04:00 99.5 89 14 152/77 (102) 97 RHYTHM: NSR LUNGS: lungs clear bilaterally CARDIAC: regular rhythm, normal S1 and S2, gallop/S4 ABDOMEN: normal bowel sounds, soft EXTREMITIES: non-tender Laboratory Tests Test 11/11/19 06:03 White Blood Count 5.9 K/UL (4.8-10.8) Red Blood Count 3.27 M/UL (4.70-6.10) L Hemoglobin 8.7 G/DL (14.2-18.0) L Hematocrit 29.1 % (42.0-52.0) L Mean Corpuscular Volume 89 FL (80-99) Mean Corpuscular Hemoglobin 26.7 PG (27.0-31.0) L Mean Corpuscular Hemoglobin Concent 29.9 G/DL (32.0-36.0) L Red Cell Distribution Width 14.9 % (11.6-14.8) H Platelet Count 221 K/UL (150-450) Mean Platelet Volume 8.4 FL (6.5-10.1) Neutrophils (%) (Auto) 63.3 % (45.0-75.0) Lymphocytes (%) (Auto) 24.5 % (20.0-45.0) Monocytes (%) (Auto) 5.9 % (1.0-10.0) Eosinophils (%) (Auto) 5.0 % (0.0-3.0) H Basophils (%) (Auto) 1.3 % (0.0-2.0) Sodium Level 140 MMOL/L (136-145) Potassium Level 4.4 MMOL/L (3.5-5.1) Chloride Level 107 MMOL/L (98-107) Carbon Dioxide Level 24 MMOL/L (21-32) Anion Gap 9 mmol/L (5-15) Blood Urea Nitrogen 32 mg/dL (7-18) H Creatinine 1.6 MG/DL (0.55-1.30) H Estimat Glomerular Filtration Rate 45.8 mL/min (>60) Glucose Level 205 MG/DL (74-106) H Calcium Level 8.0 MG/DL (8.5-10.1) L Calcium (Send out) Pending Phosphorus Level 4.4 MG/DL (2.5-4.9) Magnesium Level 1.7 MG/DL (1.8-2.4) L Iron Level 81 ug/dL (50-175) Total Iron Binding Capacity 175 ug/dL (250-450) L Percent Iron Saturation 46 % (15-50) Unsaturated Iron Binding 94 ug/dL (112-346) L Ferritin 95 NG/ML (8-388) Vitamin D 25-Hydroxy Pending 25-Hydroxy Vitamin D2 Pending 25-Hydroxy Vitamin D3 Pending Parathyroid Hormone (Intact) Pending Assessment/Plan Assessment/Plan Pulmonary Hypertension - severe likely secondary to hypertensive heart disease HHD CKD Resolved hyperkalemia Avoid ARB and ACEi Advance amlodipine Consider therapy with Revatio alf Stable for outpatient follow up Samuel Redd MD Nov 12, 2019 01:00
--- NOTE | 2019-11-15 12:33 | Discharge Summary ---
Discharge Summary Discharge Summary _ DATE OF ADMISSION: 11/09/2019 DATE OF DISCHARGE: 11/11/2019 DISCHARGED BY: Dr. Moran REASON FOR ADMISSION: 79 years old male with past medical history of chronic kidney disease, congestive heart failure, on Lasix, presented with abnormal labs. Patient had a lab work done the day prior to presentation to ED and got a call from his primary care provider . Potassium was 6.2 , and patient was advised to immediately go to emergency room for further management. Patient reported diffuse extremities swelling over the past month. He denied headache, fever or chills. No chest pain or shortness of breath. No abdominal pain. No nausea , vomiting,diarrhea. No dysuria. Upon evaluation blood pressure was elevated 169 /86 . otherwise vital signs were stable. Urinalysis revealed no evidence of urinary tract infection. No leukocytosis, hemoglobin 9.2,hematocrit 30.6,platelet count 245. Potassium 6.1. BUN 31, creatinine 1.8. Glucose 137. Stable LFT. Troponin 0.016. Pro BNP 4777. EKG revealed normal sinus rhythm, no acute ischemic changes. In the emergency department patient received IV Lasix, , Kayexalate, insulin and dextrose. Repeated potassium was 5.1. Patient admitted to telemetry floor for further management. CONSULTANTS: inspector heating and refrigeration Dr. Redd gum sprayer Dr. Connors [facility] COURSE: Patient admitted to telemetry floor. Home medication continued. Calibration Technician and inspector heating and refrigeration followed. Nephrotoxins were avoided. Losartan was discontinued. Echocardiogram demonstrated preserved ejection fraction 55 to 60%. No evidence of pericardial effusion. No evidence of wall motion abnormality. Right ventricular systolic pressure of 59 consistent with moderate to severe pulmonary hypertension. Moderate tricuspid regurgitation. Pulse oximetry remained stable on room air. Antiplatelet therapy with aspirin and statin continued. Antihypertensive regimen titrated to bring blood pressure under control. Hyperkalemia resolved. . ARB and DANY inhibitor were avoided , given acute kidney injury and initiial hyperkalemia. Renal ultrasound was negative. Creatinine slowly trended down to 1.6. Patient clinically stabilized and was ready for discharge home FINAL DIAGNOSES: Hyperkalemia- resolved FAVIOLA on CKD Hypertensive heart disease Diabetes mellitus CHF Anemia Pulmonary hypertension DISCHARGE MEDICATIONS: See Medication Reconciliation list. DISCHARGE INSTRUCTIONS: Patient was discharged home. Follow-up with a primary care provider in 1 week. I have been assigned to dictate discharge summary for this account. I was not involved in the patient's management. Tabby Ornelas NP Nov 15, 2019 12:33
== END 2019-11-11 15:47 | disposition home or self-care (01) | DRG 425 ==
LOC: EMR 19:34 → 2E 20:36 → EDBEDREQ 21:17
DX: E87.5 Hyperkalemia (principal); N17.9 Acute kidney failure, unspecified; I13.0 Hypertensive heart and chronic kidney disease with heart failure and stage 1 through stage 4 chronic kidney disease, or unspecified chronic kidney disease; N18.9 Chronic kidney disease, unspecified; I50.9 Heart failure, unspecified; I27.20 Pulmonary hypertension, unspecified; E78.5 Hyperlipidemia, unspecified; E11.22 Type 2 diabetes mellitus with diabetic chronic kidney disease
CPT/HCPCS: 36415; 71045; 76770; 78579; 78580; 80048; 80053; 81003; 82140; 82306; 82728; 82962; 83540; 83550; 83735; 83880; 83970; 84100; 84132; 84443; 84484; 85025; 85610; 93005; 93306; 93970; 96374; 96375; 99291; A9503